=== PATIENT | female | born 1995 | race Caucasian/White ===

== ENCOUNTER 2023-03-27 18:49 | Emergency (ER) | payer OTHER ==
[2023-03-27 19:12] LABS: BILIRUBIN,URINE NEGATIVE (NEGATIVE); GLUCOSE, URINE (UA) NEGATIVE (NEGATIVE); KETONES,URINE (UA) NEGATIVE (NEGATIVE); LEUKOCYTE ESTERASE, URINE NEGATIVE (NEGATIVE); NITRITE,URINE NEGATIVE (NEGATIVE); OCCULT BLOOD,URINE NEGATIVE (NEGATIVE); PROTEIN,URINE NEGATIVE (NEGATIVE); UROBILINOGEN,URINE 0.2 (NORMAL) E.U./dL (NORMAL)
[2023-03-27 19:16] LABS: CLARITY,URINE CLEAR (CLEAR); HCG UR QUAL NEGATIVE
[2023-03-27 19:22] LABS: BASOPHILS % (AUTO) 0.4 %; EOSINOPHILS # (AUTO) 0.1 10^3/uL (0.0-0.7); EOSINOPHILS % (AUTO) 1.2 %; HCT - HEMATOCRIT 39.8 % (37.0-47.0); HGB - HEMOGLOBIN 13.6 g/dL (12.0-16.0); LYMPHOCYTES # (AUTO) 1.9 10^3/uL (1.5-3.5); LYMPHOCYTES % (AUTO) 25.6 %; MEAN CORPUSCULAR HEMOGLOBIN 29.2 pg (27.0-31.0); MEAN CORPUSCULAR HGB CONC 34.2 g/dL (32.0-36.0); MEAN CORPUSCULAR VOLUME 85.4 fL (81.0-99.0); MEAN PLATELET VOLUME 9.7 fL (7.9-10.8); MONOCYTES # (AUTO) 0.6 10^3/uL (0.0-1.0); MONOCYTES % (AUTO) 7.6 %; NEUTROPHILS # (AUTO) 4.8 10^3/uL (1.5-6.6); NEUTROPHILS % (AUTO) 65.1 %; PLT - PLATELET COUNT 294 10^3/uL (130-450); RED BLOOD COUNT 4.66 10^6/uL (4.20-5.40); RED CELL DISTRIBUTION WIDTH 12.9 % (12.0-15.0); WHITE BLOOD COUNT 7.4 x10^3/uL (4.8-10.8)
[2023-03-27 19:36] LABS: ALBUMIN 4.4 g/dL (3.2-5.5); ALBUMIN/GLOBULIN RATIO 1.5 (1.0-2.2); BILIRUBIN,TOTAL 0.5 mg/dL (0.2-1.0); CALCIUM 9.3 mg/dL (8.5-10.3); CREATININE 0.8 mg/dL (0.4-1.0); POTASSIUM 3.8 mmol/L (3.5-5.0); TOTAL PROTEIN 7.4 g/dL (6.7-8.2)
[2023-03-27] MEDS ORDERED: ONDANSETRON 4 MG/2 ML VIAL IVP STA (19:38)
[2023-03-27] MEDS ORDERED: SODIUM CHLORIDE 0.9% 1,000 ML IV STA (19:38)
[2023-03-27] MEDS ORDERED: HYDROmorphone 1 MG/ML CARPUJECT IVP STA (19:38)
--- NOTE | 2023-03-27 19:42 | ED Physician Documentation ---
History of Present Illness - Stated complaint Stated Complaint: ABD PX/VOMIT - Chief complaint Chief Complaint: Abd Pain - Additonal information Additional information: 27-year-old female here with acute right lower quadrant abdominal pain that woke her up from sleep this morning. She has had some nausea and vomiting. No fevers. No urinary symptoms. No history of similar. No pertinent past surgical history. Review of Systems Constitutional: denies: Fever Respiratory: reports: Reviewed and negative GI: reports: Abdominal Pain, Nausea, Vomiting : reports: Reviewed and negative Skin: reports: Reviewed and negative PD PAST MEDICAL HISTORY - Present Medications Home Medications: Ambulatory Orders Medication Instructions Recorded Confirmed HYDROcod/ACETAM 5/325 [[place] 5/325] 1 tablet PO BID PRN #10 tablet 03/27/23 Ondansetron Odt [Zofran] 4 mg TL Q6H PRN #10 tablet 03/27/23 - Allergies Allergies/Adverse Reactions: Allergies Allergy/AdvReac Type Severity Reaction Status Date / Time No Known Drug Allergies Allergy Verified 03/27/23 18:59 PD ED PE NORMAL - General General: Alert and oriented X 3, No acute distress - Cardiac Cardiac: RRR, No murmur - Respiratory Respiratory: Clear bilaterally - Abdomen Abdomen: Normal bowel sounds, Soft. No: Non tender (Focal tenderness of right lower quadrant with equivocal McBurney's.) - Back Back: No CVA TTP - Derm Derm: Normal color, Warm and dry - Extremities Extremities: No deformity - Neuro Neuro: Alert and oriented X 3, intelligence research specialist 2-12 intact Eye Opening: Spontaneous Motor: Obeys Commands Verbal: Oriented GCS Score: 15 Results - Vitals Vitals: Vital Signs - 24 hr 03/27/23 03/27/23 18:56 20:59 Temperature 36.5 C Heart Rate 77 59 L Respiratory 20 18 Rate Blood Pressure 129/89 H 108/65 O2 Saturation 99 99 Oxygen O2 Source Room air - Labs Labs: Laboratory Tests 03/27/23 03/27/23 03/27/23 19:05 19:14 19:14 WBC 7.4 RBC 4.66 Hgb 13.6 Hct 39.8 MCV 85.4 MCH 29.2 MCHC 34.2 RDW 12.9 Plt Count 294 MPV 9.7 Neut # (Auto) 4.8 Lymph # (Auto) 1.9 [place] # (Auto) 0.6 Eos # (Auto) 0.1 Baso # (Auto) 0.0 Absolute Nucleated RBC 0.00 Nucleated RBC % 0.0 Sodium 137 Potassium 3.8 Chloride 107 Carbon Dioxide 24 Anion Gap 6.0 BUN 17 Creatinine 0.8 Estimated GFR (MDRD) 86 L Glucose 101 H Calcium 9.3 Total Bilirubin 0.5 AST 91 H ALT 40 Alkaline Phosphatase 57 Total Protein 7.4 Albumin 4.4 Globulin 3.0 Albumin/Globulin Ratio 1.5 Lipase 34 Urine Color YELLOW Urine Clarity CLEAR Urine pH 5.0 Ur Specific [place] >=1.030 H Urine Protein NEGATIVE Urine Glucose (UA) NEGATIVE Urine Ketones NEGATIVE Urine Occult Blood NEGATIVE Urine Nitrite NEGATIVE Urine Bilirubin NEGATIVE Urine Urobilinogen 0.2 (NORMAL) Ur Leukocyte Esterase NEGATIVE Ur Microscopic Review NOT INDICATED Urine Culture Comments NOT INDICATED Urine HCG, Qual NEGATIVE - Rads (name of study) Ct abd Relevant Findings:: Final report received (No evidence appendicitis. Peripherally enhancing right adnexal cyst measuring up to 3 cm. Small amount of pelvic free fluid appears within physiologic limits) Pelvic US Relevant Findings:: Other (Per polysomnography technologist 2.5 cm hemorrhagic right ovarian cyst with a small amount of free pelvic fluid. No torsion.) PD Medical Decision Making - ED course Complexity details: reviewed results, re-evaluated patient, d/w patient ED course: Well-appearing 27-year-old female presents emergency department for evaluation of acute onset right lower quadrant abdominal pain associated nausea and vomiting that began this AM. On exam and she had focal tenderness in the right lower quadrant of the abdomen equivocal McBurney's. Did obtain a CBC, electrolytes urinalysis. The only abnormality seen on laboratory testing is an elevated AST level. No findings of infection in the urine. Subsequently a CT of the abdomen was completed for evaluation of possible appendicitis. CT shows no findings of appendicitis however there is a finding of a 3 cm right adnexal cyst. Subsequently pelvic ultrasound was completed and per the polysomnography technologist 2.5 cm hemorrhagic right ovarian cyst. Here in the emergency department patient was given a liter of IV fluids as well as Dilaudid and on reevaluation is almost pain-free. I discussed the laboratory and imaging findings with the patient. We will make the recommendation for ibuprofen and Tylenol deof-pam-rbyhyyi. A very limited amount of hydrocodone for more severe pain has been sent to patient's pharmacy. Advise follow-up with [facility]. Patient may benefit from referral to OB/[place]. The usual emergent return precautions for worsening symptoms was discussed. I am prescribing a short course of short-acting opioid pain medication for this patient. I have reviewed the patients AIR BAG BUFFER and no concerning findings were noted. I have discussed that the opioids are for short term therapy only, and will not be refilled from the ED. Departure - Departure Clinical Impression: Elevated AST (SGOT), RLQ abdominal pain, Hemorrhagic cyst of right ovary Condition: Stable Record reviewed to determine appropriate education?: Yes Instructions: ED Cyst Ovarian Prescriptions: HYDROcod/ACETAM 5/325 [[place] 5/325] 1 tablet PO BID PRN #10 tablet PRN Reason: Pain Ondansetron Odt [Zofran] 4 mg TL Q6H PRN #10 tablet PRN Reason: Nausea / Vomiting Comments: As discussed at the bedside the CT imaging today showed no findings of appendicitis though there was a large right ovarian cyst noted. We did do a follow-up ultrasound that showed that this is a hemorrhagic ovarian cyst. It has ruptured and there is a small amount of free fluid in your pelvis. This can be irritating and cause pain. In general most ovarian cysts including hemorrhagic ones are self-limiting. We typically recommend ibuprofen and Tylenol [id number] for discomfort. For more severe pain a prescription for [place] has been sent to the [facility] in [place]. I encourage you to discuss this ED visit with your primary provider at [facility]. You may benefit from referral to gynecology for further evaluation. Return to the ER if you are having new or worsening symptoms. I am prescribing a short course of narcotic pain medication for you. These are potentially dangerous and addictive medications that should be used carefully. These medications may constipate you. Take an lkxq-teq-jyneswy stool softener (docusate) twice daily with plenty of water while taking these medications. If you go 24 hours without a bowel movement, take [id number] miralax, per package instructions. Do not drink or drive while taking these medications. If you received narcotic or sedating medications while in the emergency department, do not drive for 24 hours. Store this medication in a safe, secure place and out of reach of children. It is a violation of federal law to give or sell this medication to another person or to use in a manner other than prescribed. The ED will not refill narcotic prescriptions, including prescriptions lost or stolen. To dispose of unwanted medications: 1. [facility] at [address] in [place] has a medication drop box. They accept prescription medications (in pill form) Tuesday through Tuesday 9:00 a.m. to 5:00 p.m. 2. The [facility] [employer] accepts prescription medications (in pill form only) for disposal year round. Call for more information. 3. Contact the [facility] for the next [facility] sponsored prescription drug collection event. , [phone], or [phone]; Note that many narcotic pain relievers also contain Tylenol/acetaminophen. Please ensure that your total dose of acetaminophen from all sources does not exceed 3 g (3000 mg) per day.
[2023-03-27] MEDS ORDERED: iohexoL-300 100 ML VIAL ONE (19:45)
--- NOTE | 2023-03-27 21:11 | CT Report ---
PROCEDURE: ABDOMEN/PELVIS W INDICATIONS: RLQ abd pain CONTRAST: Omni 300 100ml TECHNIQUE: After the administration of intravenous contrast, 5 mm thick sections acquired from the diaphragms to the symphysis. 5 mm thick coronal and sagittal reformats were acquired. For radiation dose reducti on, the following was used: automated exposure control, adjustment of mA and/or kV according to edson ent size. COMPARISON: None. FINDINGS: Image quality: Excellent. Lung bases: Unremarkable. Heart: Heart is normal in size. ABDOMEN: Liver: No mass lesion. Gallbladder: Within normal limits without calcified gallstones. Biliary ducts: No biliary ductal dilatation. Pancreas: Unremarkable. Spleen: Normal in size. Adrenal Glands: No adrenal nodules. Kidneys and Ureters: No hydronephrosis. Stomach and Bowel: Stomach, small bowel loops, and colon are normal in caliber and wall thickness. T he appendix is normal. Peritoneum:There is a small amount of free fluid in the pelvis which appears within physiologic limi ts. No free air. Ventral Wall: No hernia. Abdominal Nodes: No retroperitoneal or mesenteric adenopathy by size criteria. Vessels: Aorta and inferior vena cava are normal in size. PELVIS: Pelvic Organs:There is a peripherally enhancing right adnexal cyst measuring up to 3.0 cm.. Bladder: Unremarkable. Pelvic Nodes: No enlarged lymph nodes. Miscellaneous: No inguinal hernias. Bones: Visualized osseous structures demonstrate no suspicious lesions. IMPRESSION: 1. No evidence of appendicitis. 2. Peripherally enhancing right adnexal cyst measuring up to 3.0 cm. Further evaluation may obtained with pelvic ultrasound. 3. Small amount of pelvic free fluid appears within physiologic limits. Reviewed by: Norman Tobar MD on 03/27/2023 9:10 PM PDT Approved by: Norman Tobar MD on 03/27/2023 9:10 PM PDT Station ID: [id number]
[2023-03-27 21:41] VITALS: BP 116/75
--- NOTE | 2023-03-27 23:02 | Ultrasound Report ---
PROCEDURE: Pelvic w/Doppler Complete INDICATIONS: pelvic pain, R; ovarian cyst; ? torsion TECHNIQUE: Real-time transabdominal scanning was performed of the pelvic organs, with image documentation. Dopp ler interrogation was performed of the ovaries bilaterally. COMPARISON: CT abdomen pelvis 03/27/2023. FINDINGS: Uterus: Uterus is anteverted and measures 8.3 x 3.8 x 5 4.8 cm. Endometrium measures up to 0.5 cm. Ovaries: The right ovary measures 4.6 x 2.7 x 4.2 cm, with a calculated ovarian volume of 26.9 cc. The left ovary measures 3.1 x 1.9 x 2.1 cm, with a calculated ovarian volume of 6.7 cc. There is pat ent arterial and venous flow demonstrated within the ovaries. There is a thick-walled heterogeneous s tructure within the right ovary measuring 2.6 x 2.7 x 2.3 cm with posterior acoustic enhancement. The re is peripheral vascularity on color Doppler interrogation. Findings are compatible with a complex c yst. Other: No pathologic free abdominal or pelvic fluid. IMPRESSION: 1. No evidence of ovarian torsion. 2. Complex right ovarian cyst with peripheral vascularity likely represents a hemorrhagic cyst. [facility], a follow-up ultrasound is recommended in 6 weeks to demonstrate resolution. Reviewed by: Norman Tobar MD on 03/27/2023 11:00 PM PDT Approved by: Norman Tobar MD on 03/27/2023 11:00 PM PDT Station ID: [id number]
[2023-03-27] MEDS ORDERED: iohexoL-300 100 ML VIAL IVP ONE (23:50)
== END 2023-03-27 21:38 | disposition home or self-care (01) ==
LOC: ED 18:49
DX: N83.201 Unspecified ovarian cyst, right side (principal); R74.01 Elevation of levels of liver transaminase levels
CPT/HCPCS: 36415; 74177; 76856; 80053; 81003; 81025; 83690; 85025; 93975; 96374; 99284; J1170; Q9967; 81001; 87086